=== PATIENT | male | born 1980 | race Caucasian/White ===

== ENCOUNTER 2016-12-10 13:43 | Emergency (ER) | payer OTHER ==
[2016-12-10 13:50] VITALS: PULSE 77; BMI 27.1
--- NOTE | 2016-12-10 14:12 | PDOC ---
History of Present Illness - General History Source: Patient Exam Limitations: No Limitations - History of Present Illness Initial Comments: 12/10/16 14:45 The patient is a 36 year old male, with no significant past medical history, who presents to the emergency department with generalized weakness and dizziness for the past 3 days. He reports that when he stands up he feels dizzy. He denies any loss of consciousness. He notes that he has been eating well. He denies a family history of diabetes. He reports any recent travel or sick contacts. The patient denies chest pain, shortness of breath and headache. Denies fever, chills, nausea, vomit, diarrhea and constipation. Denies dysuria, frequency, urgency and hematuria. Allergies: None Past surgical history: None reported Social history: No alcohol, tobacco or drug use reported <Fabricio Crawley - Last Filed: 12/10/16 15:23> <Radha Ty - Last Filed: 12/11/16 13:18> - General Chief Complaint: Syncope/Near Syncope Stated Complaint: WEAKNESS Time Seen by Provider: 12/10/16 14:10 Past History <Fabricio Crawley - Last Filed: 12/10/16 15:23> - Past Medical History Suicide Attempt (Hx): No Other medical history: DENIES - Immunization History Immunization Up to Date: Yes - Psycho/Social/Smoking Cessation Hx Anxiety: No Suicidal Ideation: No Smoking History: Never smoked Hx Alcohol Use: No Drug/Substance Use Hx: No Substance Use Type: None <Radha Ty - Last Filed: 12/11/16 13:18> - Past Medical History Allergies/Adverse Reactions: Allergies Allergy/AdvReac Type Severity Reaction Status Date / Time No Known Allergies Allergy Verified 12/10/16 13:50 Home Medications: Ambulatory Orders NK [No Known Home Medication] 01/17/16 Review of Systems - Review of Systems Able to Perform ROS?: Yes Comments:: 12/10/16 14:45 GENERAL/CONSTITUTIONAL: +Generalized weakness. No fever or chills. HEAD, EYES, EARS, NOSE AND THROAT: No change in vision. No ear pain or discharge. No sore throat. CARDIOVASCULAR: No chest pain or shortness of breath RESPIRATORY: No cough, wheezing, or hemoptysis. GASTROINTESTINAL: No nausea, vomiting, diarrhea or constipation. GENITOURINARY: No dysuria, frequency, or change in urination. MUSCULOSKELETAL: No joint or muscle swelling or pain. No neck or back pain. SKIN: No rash NEUROLOGIC: +Dizziness. No headache, loss of consciousness, or change in strength/sensation. ENDOCRINE: No increased thirst. No abnormal weight change HEMATOLOGIC/LYMPHATIC: No anemia, easy bleeding, or history of blood clots. ALLERGIC/IMMUNOLOGIC: No hives or skin allergy. <OlyajonoFabriciosajan Vogt - Last Filed: 12/10/16 15:23> *Physical Exam - Vital Signs Last Vital Signs Temp Pulse Resp BP Pulse Ox 98.7 F 77 20 133/90 97 12/10/16 13:47 12/10/16 13:47 12/10/16 13:47 12/10/16 13:47 12/10/16 13:47 - Physical Exam Comments: 12/10/16 14:47 GENERAL: Awake, alert, and fully oriented, in no acute distress HEAD: No signs of trauma, normocephalic, atraumatic EYES: PERRLA, EOMI, sclera anicteric, conjunctiva clear ENT: Auricles normal inspection, hearing grossly normal, nares patent, oropharynx clear without exudates. +Dry mucosa NECK: Normal ROM, supple, no lymphadenopathy, JVD, or masses LUNGS: No distress, speaks full sentences, clear to auscultation bilaterally HEART: Regular rate and rhythm, normal S1 and S2, no murmurs, rubs or gallops, peripheral pulses normal and equal bilaterally. ABDOMEN: Soft, nontender, normoactive bowel sounds. No guarding, no rebound. No masses EXTREMITIES: Normal inspection, Normal range of motion, no edema. No clubbing or cyanosis. NEUROLOGICAL: Cranial nerves II through XII grossly intact. Normal speech, normal gait, no focal sensorimotor deficits SKIN: Warm, Dry, normal turgor, no rashes or lesions noted. <OlyajonoFabriciosajan Vogt - Last Filed: 12/10/16 15:23> - Vital Signs Last Vital Signs Temp Pulse Resp BP Pulse Ox 98.7 F 77 20 133/90 97 12/10/16 13:47 12/10/16 13:47 12/10/16 13:47 12/10/16 13:47 12/10/16 13:47 <Radha Ty - Last Filed: 12/11/16 13:18> ED Treatment Course - LABORATORY CBC & Chemistry Diagram: 12/10/16 15:00 12/10/16 15:00 <Fabricio Crawley - Last Filed: 12/10/16 15:23> - LABORATORY CBC & Chemistry Diagram: 12/10/16 15:00 12/10/16 15:00 <Radha Ty - Last Filed: 12/11/16 13:18> Medical Decision Making - Medical Decision Making Labs with no significant findings. Patient improved with IV fluids. Well- appearing, no significant findings on exam. Stable for DC home. <Radha Ty - Last Filed: 12/11/16 13:18> *DC/Admit/Observation/Transfer - Attestations Scribe Attestion: 12/10/16 14:47 Documentation prepared by Fabricio Crawley, acting as medical office asst for Radha Ty MD <Fabricio Crawley - Last Filed: 12/10/16 15:23> - Discharge Dispostion Admit: No <Radha Ty - Last Filed: 12/11/16 13:18> Diagnosis at time of Disposition: Dehydration - Discharge Dispostion Disposition: HOME Condition at time of disposition: Stable - Referrals Referrals: Shari Juárez [Primary Care Provider] - - Patient Instructions Printed Discharge Instructions: DI for Dehydration -- Adult
[2016-12-10] MEDS ORDERED: SODIUM CHLORIDE 1,000 ML IV STA ×2 (14:40→15:36)
[2016-12-10 15:06] LABS: BASOPHIL 0.8 % (0-2.0); EOSINOPHIL 0.5 % (0-4.5); MCH 31.3 pg (25.7-33.7); MEAN PLT VOLUME 7.7 fl (7.5-11.1); NEUTROPHILS 61.2 % (42.8-82.8); PLATELET COUNT 271 K/MM3 (134-434); RDW 12.9 % (11.9-15.9); WHITE BLOOD COUNT 5.4 K/mm3 (4.0-10.0)
[2016-12-10 15:17] LABS: URINE APPEARANCE CLEAR; URINE BILIRUBIN NEGATIVE (NEGATIVE); URINE BLOOD NEGATIVE (NEGATIVE); URINE COLOR YELLOW; URINE GLUCOSE (UA) NEGATIVE (NEGATIVE); URINE KETONE NEGATIVE (NEGATIVE); URINE LEUK ESTERASE NEGATIVE (NEGATIVE); URINE NITRITE NEGATIVE (NEGATIVE); URINE UROBILINOGEN NEGATIVE E.U./dl (0.2-1.0)
[2016-12-10 15:22] LABS: URINE PROTEIN 2+ (NEGATIVE)
[2016-12-10 15:23] LABS: URINE MUCUS RARE; URINE RBC 1 /hpf (0-3); URINE WBC 1 /hpf (3-5)
[2016-12-10 15:28] LABS: ALBUMIN 3.9 g/dl (3.4-5.0); ALK PHOS 55 U/L (45-117); ANION GAP 8 (8-16); BILIRUBIN,TOTAL 0.5 mg/dL (0.2-1.0); CALCIUM 8.6 mg/dL (8.5-10.1); CO2 24 mmol/L (21-32); CREATININE 1.3 mg/dL (0.7-1.3); GLUCOSE,RANDOM 81 mg/dL (74-106); SGPT/ALT 38 U/L (12-78); TOT PROT 7.7 g/dl (6.4-8.2)
[2016-12-10 15:30] LABS: SGOT/AST 46 U/L (15-37)
[2016-12-10 16:47] VITALS: BP 133/74; TEMP 98.6
--- NOTE | 2016-12-10 18:20 | EKG ---
Test Reason : Blood Pressure : / mmHG Vent. Rate : 073 BPM Atrial Rate : 073 BPM P-R Int : 152 ms QRS Dur : 082 ms QT Int : 374 ms P-R-T Axes : 051 003 023 degrees QTc Int : 412 ms NORMAL SINUS RHYTHM MINIMAL VOLTAGE CRITERIA FOR LVH, MAY BE NORMAL VARIANT NONSPECIFIC ST ABNORMALITY ABNORMAL ECG WHEN COMPARED WITH ECG OF 18-AUG-2016 09:37, NO SIGNIFICANT CHANGE WAS FOUND Confirmed by NIYAH MASSEY MD ([id number]) on 12/10/2016 6:20:15 PM Referred By: Evelyn Confirmed By:NIYAH MASSEY MD
== END 2016-12-10 16:46 | disposition home or self-care (01) ==
LOC: JER 13:43
PROC: 3E0337Z Introduction of Electrolytic and Water Balance Substance into Peripheral Vein, Percutaneous Approach (ICD-10-PCS; principal; 2016-12-10)
DX: E86.0 Dehydration (principal)
CPT/HCPCS: 36415; 80053; 81003; 81015; 85025; 93005; 93010; 99285-25

== ENCOUNTER 2017-04-11 11:50 | Emergency (ER) | payer OTHER ==
[2017-04-11 11:59] VITALS: TEMP 98; BMI 27.2
[2017-04-11] MEDS ORDERED: SODIUM CHLORIDE 1,000 ML IV STA (12:41)
[2017-04-11] MEDS ORDERED: KETOROLAC TROMETHAMINE 30 MG/1 ML VIAL IVPUSH STA (12:41)
[2017-04-11] MEDS ORDERED: PANTOPRAZOLE SODIUM 40 MG in SODIUM CHLORIDE 100 ML IVPB ONE (12:41)
--- NOTE | 2017-04-11 13:03 | PDOC ---
History of Present Illness - General Chief Complaint: Pain Stated Complaint: ABD PAIN Time Seen by Provider: 04/11/17 12:11 History Source: Patient Exam Limitations: No Limitations - History of Present Illness Travel History: No Initial Comments: 04/11/17 12:57 37-year-old male presents to the ED with complaints of intermittent diarrhea for the past 2 days associated with epigastric cramping without fever, chills, nausea, weakness, dizziness, rectal bleeding, or back pain. Patient states symptoms are worsened after eating and denies history of diverticulitis, recent travel, recent illness. Pt states diarrhea has decreased over the past 24 hours but since still continues, he decided to seek medical care. Timing/Duration: reports: intermittent Quality: reports: moderate, cramping Abdominal Pain Onset Location: reports: epigastric Pain Radiation: reports: no radiation Aggravating Factors: improves with: Eating Alleviating Factors: improves with: None Past History - Travel Traveled outside of the country in the last 30 days: No Close contact w/someone who was outside of country & ill: No - Past Medical History Allergies/Adverse Reactions: Allergies Allergy/AdvReac Type Severity Reaction Status Date / Time No Known Allergies Allergy Verified 04/11/17 11:59 Home Medications: Ambulatory Orders NK [No Known Home Medication] 01/17/16 Suicide Attempt (Hx): No - Immunization History Immunization Up to Date: Yes - Psycho/Social/Smoking Cessation Hx Anxiety: No Suicidal Ideation: No Smoking History: Never smoked Information on smoking cessation initiated: No Hx Alcohol Use: No Drug/Substance Use Hx: No Substance Use Type: None Patient Lives Alone: No Lives with/in: spouse/SO Abd/GI Specific PMHX - Complaint Specific PMHX Colitis: No Diverticulitis: No GERD: No GI Ulcer Disease: No Review of Systems - Review of Systems Able to Perform ROS?: Yes Constitutional: No: Symptoms Reported HEENTM: No: Symptoms Reported Respiratory: Yes: Cough, SOB with Exertion Cardiac (ROS): No: Symptoms Reported, Chest Pain, Chest Tightness ABD/GI: No: Symptoms Reported Musculoskeletal: No: Symptoms Reported Integumentary: No: Symptoms Reported Neurological: No: Symptoms reported Hematologic/Lymphatic: No: Symptoms Reported *Physical Exam - Vital Signs Last Vital Signs Temp Pulse Resp BP Pulse Ox 98 F 88 18 155/85 98 04/11/17 11:55 04/11/17 11:55 04/11/17 11:55 04/11/17 11:55 04/11/17 11:55 - Physical Exam General Appearance: Yes: Nourished, Appropriately Dressed. No: Apparent Distress HEENT: negative: Pale Conjunctivae Neck: positive: Supple Respiratory/Chest: positive: Lungs Clear, Normal Breath Sounds. negative: Respiratory Distress, Accessory Muscle Use Cardiovascular: positive: Regular Rhythm, Regular Rate. negative: Murmur Gastrointestinal/Abdominal: positive: Soft, Tenderness (epigastric right upper quadrant. Negative Rowena) Musculoskeletal: negative: CVA Tenderness Integumentary: positive: Normal Color, Warm, Moist Neurologic: positive: Motor Strength 5/5 (ambulatory) ED Treatment Course - LABORATORY CBC & Chemistry Diagram: 04/11/17 13:00 04/11/17 13:00 Medical Decision Making - Medical Decision Making 04/11/17 13:08 Patient complains of intermittent diarrhea for the past 2 days aggravated with eating. Patient has no other complaints at this time except for mild abdominal cramping to the epigastric region. Patient on exam and tenderness to the epigastric and right upper quadrant area. Patient be ordered for labs including a lipase, ordered for Protonix IV fluids and Toradol. Patient also started drinking contrast if the need for CT will be required. 04/11/17 15:00 Laboratory Tests 04/11/17 12:41 Urine Protein 2+ H Urine Nitrite Negative Urine Bilirubin Negative Ur Leukocyte Esterase Negative Urine WBC <1 04/11/17 15:01 Laboratory Tests 04/11/17 04/11/17 13:00 13:00 WBC 6.2 Hgb 14.9 Hct 43.7 Neutrophils % 63.8 Sodium 141 Potassium 4.6 Chloride 107 Carbon Dioxide 28 Anion Gap 6 L BUN 15 Creatinine 1.2 Random Glucose 91 Calcium 9.3 Magnesium 2.1 Total Bilirubin 0.4 AST 38 H ALT 38 Lipase 157 Patient states feeling better after receiving the above medication. Patient be discharged home with recommendations to take [id number] Pepcid and to eat stool binding foods such as starches and bananas *DC/Admit/Observation/Transfer Diagnosis at time of Disposition: Epigastric pain Diarrhea Qualifiers: Diarrhea type: unspecified type Qualified Code(s): R19.7 - Diarrhea, unspecified - Discharge Dispostion Disposition: HOME Condition at time of disposition: Improved - Referrals Referrals: Shari Juárez [Primary Care Provider] - - Patient Instructions Printed Discharge Instructions: DI for Diarrhea and Traveler's Diarrhea -- Adult, DI for Epigastric Pain Additional Instructions: take [id number] Pepcid and to eat stool binding foods such as starches and bananas.
[2017-04-11] MEDS ORDERED: KETOROLAC TROMETHAMINE 30 MG/1 ML VIAL ONE (13:12)
[2017-04-11] MEDS ORDERED: PANTOPRAZOLE SODIUM 100 ML IVPB ONE (13:12)
[2017-04-11 13:27] LABS: BASOPHIL 0.6 % (0-2.0); EOSINOPHIL 0.8 % (0-4.5); MCH 31.6 pg (25.7-33.7); MEAN PLT VOLUME 8.2 fl (7.5-11.1); NEUTROPHILS 63.8 % (42.8-82.8); PLATELET COUNT 235 K/MM3 (134-434); RDW 13.2 % (11.9-15.9); WHITE BLOOD COUNT 6.2 K/mm3 (4.0-10.0)
--- NOTE | 2017-04-11 13:31 | PDOC ---
*Physical Exam - Vital Signs Last Vital Signs Temp Pulse Resp BP Pulse Ox 98 F 88 18 155/85 98 04/11/17 11:55 04/11/17 11:55 04/11/17 11:55 04/11/17 11:55 04/11/17 11:55 ED Treatment Course - LABORATORY CBC & Chemistry Diagram: 04/11/17 13:00 04/11/17 13:00 - Medications Given in the ED: ED Medications Discontinued Medications Generic Name Dose Route Start Last Admin Trade Name Doris PRN Reason Stop Dose Admin Pantoprazole Sodium 40 mg/ 100 mls @ 200 mls/hr 04/11/17 12:41 04/11/17 13:19 Sodium Chloride IVPB 04/11/17 13:10 200 mls/hr ONCE ONE Administration Ketorolac Tromethamine 30 mg 04/11/17 12:41 04/11/17 13:19 Toradol Injection - IVPUSH 04/11/17 12:42 30 mg ONCE STA Administration Medical Decision Making - Medical Decision Making 04/11/17 13:30 Patient seen and evaluated with the nurse practitioner. I agree with the overall evaluation, assessment, and management with the following summary of visit: 37-year-old male presents with abdominal discomfort and diarrhea. Agree with exam, agree with workup including labs, IV fluids, antacids. Reassess and dispo
[2017-04-11 13:35] LABS: ALBUMIN 3.8 g/dl (3.4-5.0); ALK PHOS 63 U/L (45-117); ANION GAP 6 (8-16); BILIRUBIN,TOTAL 0.4 mg/dL (0.2-1.0); CALCIUM 9.3 mg/dL (8.5-10.1); CO2 28 mmol/L (21-32); CREATININE 1.2 mg/dL (0.7-1.3); GLUCOSE,RANDOM 91 mg/dL (74-106); SGPT/ALT 38 U/L (12-78); TOT PROT 7.6 g/dl (6.4-8.2)
[2017-04-11 13:40] LABS: MAGNESIUM 2.1 mg/dL (1.8-2.4)
[2017-04-11 13:41] LABS: SGOT/AST 38 U/L (15-37)
[2017-04-11 13:46] LABS: URINE APPEARANCE CLEAR; URINE BILIRUBIN NEGATIVE (NEGATIVE); URINE BLOOD NEGATIVE (NEGATIVE); URINE COLOR YELLOW; URINE GLUCOSE (UA) NEGATIVE (NEGATIVE); URINE KETONE NEGATIVE (NEGATIVE); URINE LEUK ESTERASE NEGATIVE (NEGATIVE); URINE NITRITE NEGATIVE (NEGATIVE)
[2017-04-11 14:14] LABS: URINE PROTEIN 2+ (NEGATIVE)
[2017-04-11 14:22] LABS: URINE MUCUS RARE; URINE RBC <1 /hpf (0-3); URINE WBC <1 /hpf (3-5)
[2017-04-11 15:20] VITALS: BP 145/78; PULSE 72
== END 2017-04-11 15:18 | disposition home or self-care (01) ==
LOC: JER 11:50
PROC: 3E033GC Introduction of Other Therapeutic Substance into Peripheral Vein, Percutaneous Approach (ICD-10-PCS; principal; 2017-04-11)
PROC: 3E0333Z Introduction of Anti-inflammatory into Peripheral Vein, Percutaneous Approach (ICD-10-PCS; 2017-04-11)
DX: R10.11 Right upper quadrant pain (principal); R19.7 Diarrhea, unspecified
CPT/HCPCS: 36415; 80053; 81003; 81015; 83690; 83735; 85025; 99283-25

== ENCOUNTER 2017-11-07 16:46 | Emergency (ER) | payer OTHER ==
[2017-11-07 16:52] VITALS: BP 136/92; PULSE 74; TEMP 97.9; BMI 27.2
[2017-11-07] MEDS ORDERED: KETOROLAC TROMETHAMINE 30 MG/1 ML VIAL IM ONE (16:53)
--- NOTE | 2017-11-07 16:53 | PDOC ---
Rapid Medical Evaluation Chief Complaint: Headache Time Seen by Provider: 11/07/17 16:49 Medical Evaluation: Allergies Allergy/AdvReac Type Severity Reaction Status Date / Time No Known Allergies Allergy Verified 11/07/17 16:49 11/07/17 16:50 I have performed a brief in-person evaluation of this patient. The patient presents with a chief complaint of: frontal headache with diplopia x2 days- completely relieved with Fiorcet Pertinent physical exam findings: VSS CN2-12 grossly intact I have ordered the following: Toradol The patient will proceed to the ED for further evaluation. Discharge Disposition - Diagnosis Headache - Referrals - Patient Instructions - Post Discharge Activity
[2017-11-07] MEDS ORDERED: KETOROLAC TROMETHAMINE 30 MG/1 ML VIAL ONE (18:22)
--- NOTE | 2017-11-07 18:33 | PDOC ---
History of Present Illness - General Chief Complaint: Headache Stated Complaint: HEADACHE Time Seen by Provider: 11/07/17 16:49 History Source: Patient Exam Limitations: No Limitations - History of Present Illness Initial Comments: 11/07/17 18:40 Pt with episodic headache over the past 3 years relieved with fioricet which was prescribed by pts pcp. Pt requesting fioricet refill. Pt denies worsening s/ s. Pt states has not had any imaging for the above. Pt does state intermittent blurry vision with headaches since onset. Pt denies nausea, weakness, fever, or neck pain. Timing/Duration: reports: 4-6 hours Severity: Yes: mild Associated Symptoms: reports: other Past History - Travel Traveled outside of the country in the last 30 days: No - Past Medical History Allergies/Adverse Reactions: Allergies Allergy/AdvReac Type Severity Reaction Status Date / Time No Known Allergies Allergy Verified 11/07/17 16:49 Home Medications: Ambulatory Orders NK [No Known Home Medication] 01/17/16 - Immunization History Immunization Up to Date: Yes - Suicide/Smoking/Psychosocial Hx Smoking History: Never smoked Hx Alcohol Use: No Drug/Substance Use Hx: No Substance Use Type: None Patient Lives Alone: No Lives with/in: spouse/SO Review of Systems - Review of Systems Able to Perform ROS?: Yes Constitutional: No: Symptoms Reported HEENTM: Yes: Blurred Vision (intermittently) ABD/GI: No: Symptoms Reported Musculoskeletal: No: Symptoms Reported Integumentary: No: Symptoms Reported Neurological: Yes: Headache *Physical Exam - Vital Signs Last Vital Signs Temp Pulse Resp BP Pulse Ox 97.9 F 74 20 136/92 97 11/07/17 16:49 11/07/17 16:49 11/07/17 16:49 11/07/17 16:49 11/07/17 16:49 - Physical Exam General Appearance: Yes: Nourished, Appropriately Dressed. No: Apparent Distress HEENT: positive: EOMI, VIJAY Cardiovascular: positive: Regular Rhythm, Regular Rate. negative: Murmur Extremity: positive: Normal Capillary Refill Integumentary: positive: Normal Color, Warm, Moist Neurologic: positive: Normal Mood/Affect, Motor Strength 5/5 (ambulatory) ED Treatment Course - RADIOLOGY Radiology Studies Ordered: Category Date Time Status HEAD CT WITHOUT CONTRAST [CT] Stat CT Scan 11/07/17 18:26 Ordered Medical Decision Making - Medical Decision Making 11/07/17 18:34 Pt with episodic headache now constant since yesterday. Pt on exam with no acute findings. Pt ordered for head ct and toradol. 11/07/17 19:[address] negative. Patient to be discharged home with refill to Fioricet. *DC/Admit/Observation/Transfer Diagnosis at time of Disposition: Headache - Discharge Dispostion Disposition: HOME Condition at time of disposition: Improved - Referrals Referrals: Shari Juárez [Primary Care Provider] - - Patient Instructions Printed Discharge Instructions: DI for Migraine Additional Instructions: Drink plenty of fluids and avoid triggers. Take Fioricet for pain. - Post Discharge Activity
== END 2017-11-07 19:13 | disposition home or self-care (01) ==
LOC: JERFT 16:46
PROC: 3E0233Z Introduction of Anti-inflammatory into Muscle, Percutaneous Approach (ICD-10-PCS; principal; 2017-11-07)
DX: R51 Headache (principal)
CPT/HCPCS: 70450-TC; 96372; 99281-25

== ENCOUNTER 2018-01-26 10:30 | Emergency (ER) | payer OTHER ==
[2018-01-26 10:40] VITALS: BP 104/80; PULSE 87; TEMP 98.9; BMI 26.9
--- NOTE | 2018-01-26 12:14 | PDOC ---
History of Present Illness - General Chief Complaint: Cold Symptoms Stated Complaint: HEADACHES Time Seen by Provider: 01/26/18 10:49 - History of Present Illness Initial Comments: 37-year-old male presents for evaluation of headache with associated cough. Going on the last 2 days. He has no fevers chills or night sweats nausea vomiting. He's had headaches like this in the past area he does have a history of migraines and this headache is typical of prior headaches. 01/26/18 12:06 Past History - Past Medical History Allergies/Adverse Reactions: Allergies Allergy/AdvReac Type Severity Reaction Status Date / Time No Known Allergies Allergy Verified 01/26/18 10:37 Home Medications: Ambulatory Orders Acetaminophen/Caffeine/Butalb [Fioricet -] 1 tab PO TID PRN #15 tablet MDD 3 Dextromethorphan HBr [Robitussin] 15 mg PO HS #20 ml 01/26/18 Dextromethorphan HBr [Robitussin] 15 mg PO HS #20 ml 01/26/18 CVA: No COPD: No DVT: No - Immunization History Immunization Up to Date: Yes - Suicide/Smoking/Psychosocial Hx Smoking History: Never smoked Information on smoking cessation initiated: No Hx Alcohol Use: No Drug/Substance Use Hx: No Substance Use Type: None Review of Systems - Review of Systems Comments:: 01/26/18 12:07 GENERAL/CONSTITUTIONAL: [No fever or chills. No weakness. No weight change.] HEAD, EYES, EARS, NOSE AND THROAT: [No change in vision. No ear pain or discharge. No sore throat.] CARDIOVASCULAR: [No chest pain or shortness of breath.] RESPIRATORY: [+ cough, NO wheezing, or hemoptysis.] GASTROINTESTINAL: [No nausea, vomiting, diarrhea or constipation. No rectal bleeding.] GENITOURINARY: [No dysuria, frequency, or change in urination.] MUSCULOSKELETAL: [No joint or muscle swelling or pain. No neck or back pain.] SKIN AND BREASTS: [No rash or easy bruising.] NEUROLOGIC: [+ headache, NO vertigo, loss of consciousness, or loss of sensation.] PSYCHIATRIC: [No depression or anxiety.] ENDOCRINE: [No increased thirst. No abnormal weight change.] HEMATOLOGIC/LYMPHATIC: [No anemia, easy bleeding, or history of blood clots.] ALLERGIC/IMMUNOLOGIC: [No hives or skin allergy. No latex allergy.] *Physical Exam - Vital Signs Last Vital Signs Temp Pulse Resp BP Pulse Ox 98.9 F 87 17 104/80 96 01/26/18 10:37 01/26/18 10:37 01/26/18 10:37 01/26/18 10:37 01/26/18 10:37 - Physical Exam Comments: 01/26/18 12:08 GENERAL: [The patient is awake, alert, and fully oriented, in no acute distress. ] HEAD: [Normal with no signs of trauma.] EYES: [Pupils equal, round and reactive to light, extraocular movements intact, sclera anicteric, conjunctiva clear.] ENT: [Ears normal, nares patent, oropharynx clear without exudates. Moist mucous membranes.] NECK: [Normal range of motion, supple without lymphadenopathy, JVD, or masses.] LUNGS: [Breath sounds equal, clear to auscultation bilaterally. No wheezes, and no crackles.] HEART: [Regular rate and rhythm, normal S1 and S2 without murmur, rub or gallop. ] ABDOMEN: [Soft, nontender, normoactive bowel sounds. No guarding, no rebound. No masses.] EXTREMITIES: [Normal range of motion, no edema. No clubbing or cyanosis. No cords, erythema, or tenderness.] NEUROLOGICAL: [Cranial nerves II through XII grossly intact. Normal speech, normal gait.] PSYCH: [Normal mood, normal affect.] SKIN: [Warm, Dry, normal turgor, no rashes or lesions noted.] Medical Decision Making - Medical Decision Making This may be a viral bronchitis causing a headache with his cough or exacerbation of his pre-existing migraines. He has Fioricet at home which she takes. I will give him Robitussin for the cough and close follow-up with his PCP 01/26/18 12:08 *DC/Admit/Observation/Transfer Diagnosis at time of Disposition: Headache, Bronchitis, Cough - Discharge Dispostion Disposition: HOME Condition at time of disposition: Stable Decision to Admit order: No - Referrals Referrals: Shari Juárez [Primary Care Provider] - - Patient Instructions Printed Discharge Instructions: DI for Viral Upper Respiratory Infection -- Adult Additional Instructions: May continue headache medication as prescribed above also phoned in Artemioitussin for cough follow-up with her primary care provider next day or to return to the emergency room if symptoms worsen or go unresolved prior follow-up - Post Discharge Activity
== END 2018-01-26 12:23 | disposition home or self-care (01) ==
LOC: JERFT 10:30
DX: J40 Bronchitis, not specified as acute or chronic (principal); R05 Cough; R51 Headache
CPT/HCPCS: 99281-25

== ENCOUNTER 2018-03-02 09:31 | Emergency (ER) | payer OTHER ==
[2018-03-02 09:47] VITALS: BP 127/86; PULSE 81; TEMP 97.9; BMI 27.4
[2018-03-02] MEDS ORDERED: KETOROLAC TROMETHAMINE 60 MG/2 ML VIAL IM ONE (10:58)
[2018-03-02] MEDS ORDERED: CYCLOBENZAPRINE HCL 10 MG TABLET (FP) PO ONE (10:58)
[2018-03-02] MEDS ORDERED: KETOROLAC TROMETHAMINE 60 MG/2 ML VIAL ONE (11:00)
--- NOTE | 2018-03-02 11:18 | PDOC ---
History of Present Illness - General Chief Complaint: Pain, Acute Stated Complaint: LEG PAIN Time Seen by Provider: 03/02/18 09:53 History Source: Patient - History of Present Illness Occurred: reports: yesterday Severity: Yes: moderate Lower Extremity Pain Location: left: other (thigh and R thumb) Method of Injury: Yes: sports injury Past History - Past Medical History Allergies/Adverse Reactions: Allergies Allergy/AdvReac Type Severity Reaction Status Date / Time No Known Allergies Allergy Verified 03/02/18 09:42 Home Medications: Ambulatory Orders Cyclobenzaprine HCl [Flexeril -] 10 mg PO TID #9 tablet 03/02/18 Ibuprofen [Motrin -] 2 tab PO Q6H #30 tablet 03/02/18 CVA: No COPD: No DVT: No - Immunization History Immunization Up to Date: Yes - Suicide/Smoking/Psychosocial Hx Smoking History: Never smoked Information on smoking cessation initiated: No Hx Alcohol Use: No Drug/Substance Use Hx: No Substance Use Type: None Review of Systems - Review of Systems Musculoskeletal: Yes: Joint Pain, Joint Swelling *Physical Exam - Vital Signs Last Vital Signs Temp Pulse Resp BP Pulse Ox 97.9 F 81 16 127/86 96 03/02/18 09:43 03/02/18 09:43 03/02/18 09:43 03/02/18 09:43 03/02/18 09:43 - Physical Exam General Appearance: Yes: Appropriately Dressed, Moderate Distress HEENT: positive: Normal Voice Neck: positive: Supple Respiratory/Chest: negative: Respiratory Distress Musculoskeletal: positive: Other (ttp to posterior L thigh, no swelling, distal phalanx of R thumb w/ swelling, erythema and ttp) Integumentary: positive: Dry, Warm Neurologic: positive: Fully Oriented, Alert, Normal Mood/Affect ED Treatment Course - RADIOLOGY Radiology Studies Ordered: Category Date Time Status FEMUR-LEFT [RAD] Stat Radiology 03/02/18 10:57 Ordered FINGER(S) RIGHT [RAD] Stat Radiology 03/02/18 10:59 Ordered - Medications Given in the ED: ED Medications Discontinued Medications Generic Name Dose Route Start Last Admin Trade Name Freq PRN Reason Stop Dose Admin Ketorolac Tromethamine 60 mg 03/02/18 10:58 03/02/18 11:02 Toradol Injection - IM 03/02/18 10:59 60 mg ONCE ONE Administration Medical Decision Making - Medical Decision Making 03/02/18 11:13 37-year-old male, no significant history, presents with multiple injuries status post basketball yesterday. Patient complaining of pain to posterior aspect of left thigh which started after landing jumpimg in air and landing hard on LLE. Suspects might be his hamstring. Pain sharp and constant and worse with weight bearing. Has not taken anything for pain but wearing an john wrap to extremity. Also complaining of R thumb pain and swelling after a ball bounced off finger. See exam LLE pain s/p sports injury M/l strain -XR 2/2 degree of pain -pain meds in ED/reassess R thumb injury R/o fx -xray 03/02/18 11:44 Left femur negative for fracture. Right thumb film with possible minor non- displaced fracture to base of distal phalanx. Finger splint paced and hand follow-up given. Patient better with meds in ED, will discharge with pain control *DC/Admit/Observation/Transfer Diagnosis at time of Disposition: Muscle strain of thigh Qualifiers: Encounter type: initial encounter Laterality: left Qualified Code(s): S76.912A - Strain of unspecified muscles, fascia and tendons at thigh level, left thigh, initial encounter Thumb sprain Qualifiers: Sprain of finger site: other site Laterality: right - Discharge Dispostion Disposition: HOME Condition at time of disposition: Improved - Prescriptions Prescriptions: Cyclobenzaprine HCl [Flexeril -] 10 mg PO TID #9 tablet Ibuprofen [Motrin -] 2 tab PO Q6H #30 tablet - Referrals Referrals: Shari Juárez [Primary Care Provider] - Bubba Rossi MD [Staff Physician] - - Patient Instructions Printed Discharge Instructions: DI for Finger Sprain, DI for Hamstring Strain Additional Instructions: X-ray of your left thigh did not show a fracture. There is a possible very minor fracture in your thumb. Treatment is with a splint for comfort and Motrin or Tylenol for pain as needed. You can follow up for reevaluation in 2 weeks with an orthopedic doctor. Take pain medication as directed - Post Discharge Activity Forms/Work/School Notes: Back to Work
== END 2018-03-02 12:06 | disposition home or self-care (01) ==
LOC: JERFT 09:31
PROC: 2W3JX1Z Immobilization of Right Finger using Splint (ICD-10-PCS; principal; 2018-03-02)
PROC: 3E0233Z Introduction of Anti-inflammatory into Muscle, Percutaneous Approach (ICD-10-PCS; 2018-03-02)
DX: S76.812A Strain of other specified muscles, fascia and tendons at thigh level, left thigh, initial encounter (principal); S63.681A Other sprain of right thumb, initial encounter; X50.9XXA Other and unspecified overexertion or strenuous movements or postures, initial encounter; Y93.67 Activity, basketball; Y92.310 Basketball court as the place of occurrence of the external cause; Y99.8 Other external cause status
CPT/HCPCS: 29130; 73140-TC-RT-FY; 73552-TC-LT-FY; 96372; 99281-25

== ENCOUNTER 2018-06-28 17:04 | Emergency (ER) | payer OTHER ==
[2018-06-28 17:21] VITALS: BP 129/87; PULSE 80; TEMP 98.6; BMI 27.1
--- NOTE | 2018-06-28 17:21 | PDOC ---
Rapid Medical Evaluation Time Seen by Provider: 06/28/18 17:18 Medical Evaluation: Allergies Allergy/AdvReac Type Severity Reaction Status Date / Time No Known Allergies Allergy Verified 06/28/18 17:13 06/28/18 17:19 The patient complaints of: 1st toe pain after rotor fell on toe, no diabetes On brief exam: noted mild edema and LROM to left 1st toe The patient was ordered for: xray ordered The patient will proceed to the ED Discharge Disposition - Diagnosis Toe injury - Referrals - Patient Instructions - Post Discharge Activity
[2018-06-28] MEDS ORDERED: IBUPROFEN 400 MG TABLET (FP) PO ONE ×2 (18:59)
--- NOTE | 2018-06-28 19:02 | PDOC ---
History of Present Illness - General Chief Complaint: Injury Stated Complaint: LT FOOT PAIN Time Seen by Provider: 06/28/18 17:18 History Source: Patient Exam Limitations: No Limitations - History of Present Illness Initial Comments: 06/28/18 18:57 HISTORY OF PRESENT ILLNESS: This is a 38-year-old male without past medical history who presents emergency departments with left great toe pain status post direct trauma. Patient was carrying break rotors when the weight shifted causing him to adjust the way he was carrying them when one of the rotors fell out of the box striking him on the left great toe. No recent travel or sick contacts. PAST MEDICAL HISTORY: Denies past medical history SURGICAL HISTORY: Denies ALLERGIES: No known drug allergies REVIEW OF SYSTEMS General/Constitutional: Denies fever or chills. Denies weakness, weight change. HEENT: Denies change in vision. Denies ear pain or discharge. Denies sore throat. Cardiovascular: Denies chest pain or shortness of breath. Respiratory: Denies cough, wheezing, or hemoptysis. Gastrointestinal: Denies nausea, vomiting, diarrhea or constipation. Denies rectal bleeding. Genitourinary: Denies dysuria, frequency, or change in urination. Musculoskeletal: Left great toe pain. Skin and breasts: Denies rash or easy bruising. Neurologic: Denies headache, vertigo, loss of consciousness, or loss of sensation. Psychiatric: Denies depression or anxiety. Endocrine: Denies increased thirst. Denies abnormal weight change. Hematologic/Lymphatic: Denies anemia, easy bleeding, or history of blood clots. Allergic/Immunologic: Denies hives or skin allergy. Denies latex allergy. PHYSICAL EXAM General Appearance: Well-appearing, appropriately dressed. No apparent distress , no intoxication. HEENT: EOMI, PERRLA, normal ENT inspection, normal voice, TMs normal, pharynx normal. No conjunctival pallor. No photophobia, scleral icterus. Neck: Supple. Trachea midline. No tenderness, rigidity, carotid bruit, stridor , lymphadenopathy, or thyromegaly. Respiratory/Chest: Lungs CTAB. No shortness of breath, chest tenderness, respiratory distress, accessory muscle use. No crackles, rales, rhonchi, stridor , wheezing, dullness Cardiovascular: RRR. S1, S2. No JVD, murmur, bradycardia, tachycardia. Vascular Pulses: Dorsalis-Pedis (R): 2+, Dorsalis-Pedis (L): 2+ Gastrointestinal/Abdominal: Normal bowel sounds. Abdomen soft, non-distended. No tenderness or rebound tenderness. No organomegaly, pulsatile mass, guarding, hernia, hepatomegaly, splenomegaly. Lymphatic: No adenopathy, tenderness. Musculoskeletal/Extremities: Normal inspection. FROM of all extremities, normal capillary refill. Pelvis Stable. No CVA tenderness. Tenderness to the distal phalanx of the left great toe. Capillary refill less than 2 seconds. No subungual hematoma present. Able to flex and extend toe against resistance. Integumentary: Appropriate color, dry, warm. No cyanosis, erythema, jaundice or rash Neurologic: radioactivity technician II-XII intact. Fully oriented, alert. Appropriate mood/affect. Motor strength 5/5. No appreciable EOM palsy, facial droop or sensory deficit. Past History - Past Medical History Allergies/Adverse Reactions: Allergies Allergy/AdvReac Type Severity Reaction Status Date / Time No Known Allergies Allergy Verified 06/28/18 17:13 Home Medications: Ambulatory Orders NK [No Known Home Medication] 06/28/18 CVA: No COPD: No DVT: No HTN: Yes - Immunization History Immunization Up to Date: Yes - Suicide/Smoking/Psychosocial Hx Smoking History: Never smoked Hx Alcohol Use: No Drug/Substance Use Hx: No Substance Use Type: None *Physical Exam - Vital Signs Last Vital Signs Temp Pulse Resp BP Pulse Ox 98.6 F 80 18 129/87 97 06/28/18 17:18 06/28/18 17:18 06/28/18 17:18 06/28/18 17:18 06/28/18 17:18 Medical Decision Making - Medical Decision Making 06/28/18 18:59 A/P: 38-year-old male with left great toe pain status post direct trauma Tender to palpation of the distal phalanx of the left great toe No subungual hematoma present Capillary refill less than 2 seconds Full sensation noted to the distal phalanx of the left great toe X-rays as read by me: No acute fractures present Motrin 800 mg orally now Discharge home *DC/Admit/Observation/Transfer Diagnosis at time of Disposition: Contusion of great toe of left foot Qualifiers: Encounter type: initial encounter Damage to nail status: without damage Qualified Code(s): S90.112A - Contusion of left great toe without damage to nail , initial encounter - Discharge Dispostion Disposition: HOME Condition at time of disposition: Stable Decision to Admit order: No - Referrals Referrals: Shari Juárez [Primary Care Provider] - - Patient Instructions Additional Instructions: Take Tylenol or Motrin as needed for pain. Follow manufacture's instructions for appropriate dosage. You toes going to hurt for the next 7-10 days. Apply ice to help control pain. Return to emergency department for any concerns. - Post Discharge Activity
== END 2018-06-28 19:04 | disposition home or self-care (01) ==
LOC: JERFT 17:04
DX: S90.112A Contusion of left great toe without damage to nail, initial encounter (principal); W20.8XXA Other cause of strike by thrown, projected or falling object, initial encounter; Y93.89 Activity, other specified; Y92.69 Other specified industrial and construction area as the place of occurrence of the external cause; Y99.0 Civilian activity done for income or pay; I10 Essential (primary) hypertension
CPT/HCPCS: 73660-TC-LT-FY; 99281-25

== ENCOUNTER 2018-09-04 18:29 | Emergency (ER) | payer OTHER ==
[2018-09-04 18:44] VITALS: BP 146/105; PULSE 80; TEMP 98.2; BMI 27.6
--- NOTE | 2018-09-04 18:45 | PDOC ---
Rapid Medical Evaluation Chief Complaint: Sore Throat Medical Evaluation: Allergies Allergy/AdvReac Type Severity Reaction Status Date / Time No Known Allergies Allergy Verified 09/04/18 18:41 12 18:42 I have performed a brief in-person evaluation of this patient. The patient presents with a chief complaint of: sorethroat , no fevers, no coughs. Pertinent physical exam findings: throaot mild red/ no exudates I have ordered the following: rapid strep The patient will proceed to the ED for further evaluation. 09/04/18 18:45 Discharge Disposition - Diagnosis Sore throat - Referrals Referrals: Shari Juárez [Primary Care Provider] - - Patient Instructions - Post Discharge Activity
--- NOTE | 2018-09-04 19:25 | PDOC ---
History of Present Illness - General Chief Complaint: Sore Throat Stated Complaint: Sore Throat Time Seen by Provider: 09/04/18 19:10 - History of Present Illness Initial Comments: 09/04/18 19:24 28-year-old male with past medical history significant for hypertension presents for evaluation of sore throat 4 days after recent travel without systemic symptoms Past History - Past Medical History Allergies/Adverse Reactions: Allergies Allergy/AdvReac Type Severity Reaction Status Date / Time No Known Allergies Allergy Verified 09/04/18 18:41 Home Medications: Ambulatory Orders Unobtainable 09/04/18 CVA: No COPD: No DVT: No HTN: Yes - Immunization History Immunization Up to Date: Yes - Suicide/Smoking/Psychosocial Hx Smoking History: Never smoked Have you smoked in the past 12 months: No Hx Alcohol Use: No Drug/Substance Use Hx: No Substance Use Type: None Review of Systems - Review of Systems Constitutional: No: Fever HEENTM: Yes: Throat Pain *Physical Exam - Vital Signs Last Vital Signs Temp Pulse Resp BP Pulse Ox 98.2 F 80 18 146/105 H 95 09/04/18 18:41 18 18:41 09/04/18 18:41 09/04/18 18:41 09/04/18 18:41 - Physical Exam Comments: 09/04/18 19:25 HEAD: NC/AT EYES: Conjuntiva clear Ears: Canals and TM's normal NOSE: No d/c THROAT: Moist mucous membrances, oral pharanx clear, uvula midline NECK: Supple without adenopathy CARDIAC: S1 S2 LUNGS: CTA Full and Equal breath sounds ABDOMEN: Soft NT ND MS: Full ROM in all joints without edema NEUROLOGIC: No gross sensory or motor deficits, NVID SKIN: Normal color and temperature no lesions or rashes Moderate Sedation - Procedure Monitoring Vital Signs: Procedure Monitoring Vital Signs Temperature 98.2 F 09/04/18 18:41 Pulse Rate 80 09/04/18 18:41 Respiratory Rate 18 09/04/18 18:41 Blood Pressure 146/105 H 09/04/18 18:41 O2 Sat by Pulse Oximetry (%) 95 09/04/18 18:41 *DC/Admit/Observation/Transfer Diagnosis at time of Disposition: Sore throat, Viral pharyngitis - Discharge Dispostion Disposition: HOME Condition at time of disposition: Stable Decision to Admit order: No - Referrals Referrals: Shari Juárez [Primary Care Provider] - - Patient Instructions Printed Discharge Instructions: Viral Pharyngitis, DI for Viral Pharyngitis Additional Instructions: Warm salt water gargles 5-6 times a day, Tylenol and Motrin for pain as directed follow up with her primary care physician in one to 2 days for further evaluation and treatment options and return to the emergency room should symptoms worsen or go unresolved. Your strep today was negative and U do not require antibiotics culture was sent. - Post Discharge Activity
== END 2018-09-04 20:23 | disposition home or self-care (01) ==
LOC: JERFT 18:29
DX: J02.9 Acute pharyngitis, unspecified (principal); B97.89 Other viral agents as the cause of diseases classified elsewhere; I10 Essential (primary) hypertension
CPT/HCPCS: 87070; 87880; 99281-25

== ENCOUNTER 2018-09-12 11:49 | Emergency (ER) | payer OTHER ==
[2018-09-12 12:03] VITALS: BP 130/97; PULSE 77; TEMP 97.9; BMI 27.4
--- NOTE | 2018-09-12 12:33 | PDOC ---
History of Present Illness - General Stated Complaint: SORE THROAT, BODYACHES Time Seen by Provider: 09/12/18 12:25 - History of Present Illness Initial Comments: 09/12/18 12:31 38-year-old male presents for evaluation of general malaise and sore throat times one day Past History - Past Medical History Allergies/Adverse Reactions: Allergies Allergy/AdvReac Type Severity Reaction Status Date / Time No Known Allergies Allergy Verified 09/12/18 12:03 Home Medications: Ambulatory Orders NK [No Known Home Medication] 09/12/18 CVA: No COPD: No DVT: No HTN: Yes - Immunization History Immunization Up to Date: Yes - Suicide/Smoking/Psychosocial Hx Smoking History: Unknown if ever smoked Have you smoked in the past 12 months: No Information on smoking cessation initiated: No Hx Alcohol Use: No Drug/Substance Use Hx: No Substance Use Type: None Review of Systems - Review of Systems Constitutional: Yes: Chills, Malaise, Night Sweats, Weakness. No: Fever HEENTM: Yes: Throat Pain Respiratory: No: Cough *Physical Exam - Vital Signs Last Vital Signs Temp Pulse Resp BP Pulse Ox 97.9 F 77 16 130/97 99 09/12/18 11:49 09/12/18 11:49 09/12/18 11:49 09/12/18 11:49 09/12/18 11:49 - Physical Exam Comments: 09/12/18 12:32 HEAD: NC/AT EYES: Conjuntiva clear Ears: Canals and TM's normal NOSE: No d/c THROAT: Moist mucous membrances, oral pharanx clear, uvula midline NECK: Supple without adenopathy CARDIAC: S1 S2 LUNGS: CTA Full and Equal breath sounds ABDOMEN: Soft NT ND MS: Full ROM in all joints without edema NEUROLOGIC: No gross sensory or motor deficits, NVID SKIN: Normal color and temperature no lesions or rashes Moderate Sedation - Procedure Monitoring Vital Signs: Procedure Monitoring Vital Signs Temperature 97.9 F 09/12/18 11:49 Pulse Rate 77 09/12/18 11:49 Respiratory Rate 16 09/12/18 11:49 Blood Pressure 130/97 09/12/18 11:49 O2 Sat by Pulse Oximetry (%) 99 09/12/18 11:49 *DC/Admit/Observation/Transfer Diagnosis at time of Disposition: Upper respiratory infection - Discharge Dispostion Disposition: HOME Condition at time of disposition: Stable Decision to Admit order: No - Referrals Referrals: Irena Castellanos MD [Staff Physician] - - Patient Instructions Printed Discharge Instructions: DI for Viral Upper Respiratory Infection -- Adult Additional Instructions: Flu swab today was negative. He may take Tylenol and Motrin as directed for any discomfort. Return to the emergency room should symptoms worsen or go unresolved and follow-up with your primary care physician in one to 2 days for further evaluation and treatment options. - Post Discharge Activity
== END 2018-09-12 13:13 | disposition home or self-care (01) ==
LOC: JER 11:49 → JERFT 11:49
DX: J06.9 Acute upper respiratory infection, unspecified (principal); B97.89 Other viral agents as the cause of diseases classified elsewhere
CPT/HCPCS: 87804; 99281-25

== ENCOUNTER 2018-10-22 20:02 | Emergency (ER) | payer OTHER | END 2018-10-22 22:57 | disposition home or self-care (01) | LOC: JERFT 20:02 ==

== ENCOUNTER 2018-11-14 21:30 | Emergency (ER) | payer OTHER ==
--- NOTE | 2018-11-14 21:33 | PDOC ---
Rapid Medical Evaluation Time Seen by Provider: 11/14/18 21:31 Medical Evaluation: Allergies Allergy/AdvReac Type Severity Reaction Status Date / Time No Known Allergies Allergy Verified 10/22/18 20:21 11/14/18 21:32 I have performed a brief in-person evaluation of this patient. The patient presents with a chief complaint of:R ankle injury after "twisting it " this am per pt. Denies fall. has been limping since Pertinent physical exam findings:Defer to FT provider I have ordered the following:xray The patient will proceed to the ED for further evaluation. Discharge Disposition - Diagnosis Right ankle injury Qualifiers: Encounter type: initial encounter Qualified Code(s): S99.911A - Unspecified injury of right ankle, initial encounter - Referrals - Patient Instructions - Post Discharge Activity
[2018-11-14 21:37] VITALS: BP 150/110; PULSE 91; TEMP 98.1; BMI 60.5
--- NOTE | 2018-11-14 22:13 | PDOC ---
History of Present Illness - General Chief Complaint: Pain Stated Complaint: ANCLE PAIN Time Seen by Provider: 11/14/18 21:31 - History of Present Illness Initial Comments: 11/14/18 22:10 38-year-old male with a past medical history significant for hypertension presents for evaluation of right ankle pain. He describes an inversion injury which occurred this morning while getting his daughter ready for school. Past History - Past Medical History Allergies/Adverse Reactions: Allergies Allergy/AdvReac Type Severity Reaction Status Date / Time No Known Allergies Allergy Verified 10/22/18 20:21 Home Medications: Ambulatory Orders Unobtainable 10/22/18 CVA: No COPD: No DVT: No HTN: Yes - Immunization History Immunization Up to Date: Yes - Suicide/Smoking/Psychosocial Hx Smoking History: Never smoked Have you smoked in the past 12 months: No Information on smoking cessation initiated: No Hx Alcohol Use: No Drug/Substance Use Hx: No Substance Use Type: None Review of Systems - Review of Systems Musculoskeletal: Yes: Joint Pain *Physical Exam - Vital Signs Last Vital Signs Temp Pulse Resp BP Pulse Ox 98.1 F 91 H 20 150/110 H 100 11/14/18 21:34 11/14/18 21:34 11/14/18 21:34 11/14/18 21:34 11/14/18 21:34 - Physical Exam Comments: 11/14/18 22:10 Right ankle skin color and temperature are normal. There is no swelling. There is full range of motion of the ankle knee and foot as well as the toes. There is no tenderness about the knee proximal fibula or along its distal coarse. No tenderness about the medial or lateral malleolus base of the fifth metatarsal or navicular. Mild tenderness over the ATFL. Mild tenderness over the peroneal tendon. Neurovascularly intact, no instability no gross sensorimotor deficits. Moderate Sedation - Procedure Monitoring Vital Signs: Procedure Monitoring Vital Signs Temperature 98.1 F 11/14/18 21:34 Pulse Rate 91 H 11/14/18 21:34 Respiratory Rate 20 11/14/18 21:34 Blood Pressure 150/110 H 11/14/18 21:34 O2 Sat by Pulse Oximetry (%) 100 11/14/18 21:34 Medical Decision Making - Medical Decision Making 11/14/18 22:12 X-ray show no evidence of fracture trauma or destructive process. *DC/Admit/Observation/Transfer Diagnosis at time of Disposition: Ankle sprain, Right foot strain Right ankle injury Qualifiers: Encounter type: initial encounter Qualified Code(s): S99.911A - Unspecified injury of right ankle, initial encounter - Discharge Dispostion Disposition: HOME Condition at time of disposition: Stable Decision to Admit order: No - Referrals Referrals: Shari Juárez [Primary Care Provider] - Danilo Mireles DO [Staff Physician] - - Patient Instructions Printed Discharge Instructions: Ankle Sprain, DI for Ankle Sprain Additional Instructions: Tylenol as directed for pain. He may weight-bear as tolerated with use of crutches and the Aircast. Please follow-up with orthopedic surgery in 1-2 days for further evaluation and treatment options and return to the emergency room should symptoms worsen. - Post Discharge Activity
== END 2018-11-14 22:33 | disposition home or self-care (01) ==
LOC: JERFT 21:30
PROC: 2W3QX1Z Immobilization of Right Lower Leg using Splint (ICD-10-PCS; principal; 2018-11-14)
DX: S99.911A Unspecified injury of right ankle, initial encounter (principal); X58.XXXA Exposure to other specified factors, initial encounter; Y93.89 Activity, other specified; Y92.89 Other specified places as the place of occurrence of the external cause; I10 Essential (primary) hypertension; M25.571 Pain in right ankle and joints of right foot
CPT/HCPCS: 29515; 73610-TC-RT-FY; 73630-TC-RT-FY; 99281-25

== ENCOUNTER 2019-09-01 01:21 | Emergency (ER) | payer OTHER ==
[2019-09-01 01:33] VITALS: BP 119/63; PULSE 90; TEMP 98.3; BMI 27.4
[2019-09-01] MEDS ORDERED: IBUPROFEN 600 MG TABLET (FP) PO ONE ×2 (03:10→03:19)
--- NOTE | 2019-09-01 04:04 | PDOC ---
History of Present Illness - General Chief Complaint: Pain, Acute Stated Complaint: FINGER PAIN Time Seen by Provider: 09/01/19 03:02 History Source: Patient Exam Limitations: No Limitations - History of Present Illness Initial Comments: 09/01/19 03:52 Mr. Michell Montoya is a [id number] 39-year-old male who presents emergency department with a complaint of pain to his ring finger. Briefly, patient sustained an injury earlier this year for which he had an operative procedure by a hand surgeon from [facility]. Patient states subsequent to that surgery he has had flexion of the PIP. 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 He had to drop the box. No direct trauma to the finger No puncture wounds No skin changes, no fevers or chills PMH: denies PSH: left ring finger surgery Meds: NKDA ALL: NKDA Social: ROS: GENERAL/CONSTITUTIONAL: No: fever, chills, weakness, loss of appetite. HEAD, EYES, EARS, NOSE AND THROAT: No: change in vision, ear pain, discharge, sore throat, throat swelling. CARDIOVASCULAR: No: chest pain, lightheadedness, palpitations, syncope RESPIRATORY: No: cough, shortness of breath, wheezing, hemoptysis, stridor. GASTROINTESTINAL: No: nausea, vomiting, diarrhea, abdominal cramping, rectal bleeding, constipation. GENITOURINARY: No: dysuria, hematuria, frequency, urgency, flank pain. MUSCULOSKELETAL: Yes: ring finger tender to palpaion No: swelling SKIN: No: rash, laceration NEUROLOGIC: No: headache, vertigo, paresthesias, weakness PE: GENERAL: The patient is in no acute distress. HEAD: Normal with no signs of trauma. EYES: PERRLA, EOMI, sclera anicteric, conjunctiva clear. ENT: Ears normal, nares patent, oropharynx clear without exudates. Moist mucous membranes. NECK: Normal range of motion, supple without lymphadenopathy, JVD, or masses. LUNGS: Breath sounds equal, clear to auscultation bilaterally. No wheezes, and no crackles. HEART:Regular rate and rhythm, normal S1 and S2 without murmur, rub or gallop. ABDOMEN: Soft, nontender, normoactive bowel sounds. No guarding, no rebound. No masses palpable. EXTREMITIES: left ring finger flexed at PIP, limited extension (stable from prior) tender throughout the finger sensation in tact No cyanosis. NEUROLOGICAL: Cranial nerves II through XII grossly intact. Normal speech. No focal neurological deficits. MUSCULOSKELETAL: Back non-tender to palpation SKIN: No laceration, rash bruising Past History - Past Medical History Allergies/Adverse Reactions: Allergies Allergy/AdvReac Type Severity Reaction Status Date / Time No Known Allergies Allergy Verified 09/01/19 01:30 Home Medications: Ambulatory Orders traMADol HCL [Ultram] 50 mg PO BID PRN #6 tablet MDD 2 09/01/19 CVA: No COPD: No DVT: No HTN: Yes - Immunization History Immunization Up to Date: Yes - Psycho Social/Smoking Cessation Hx Smoking History: Never smoked Have you smoked in the past 12 months: No Information on smoking cessation initiated: No Hx Alcohol Use: No Drug/Substance Use Hx: No Substance Use Type: None *Physical Exam - Vital Signs Last Vital Signs Temp Pulse Resp BP Pulse Ox 98.3 F 90 20 119/63 95 09/01/19 01:26 09/01/19 01:26 09/01/19 01:26 09/01/19 01:26 09/01/19 01:26 ED Treatment Course - RADIOLOGY Radiology Studies Ordered: Category Date Time Status FINGER(S) LEFT [RAD] Stat Radiology 09/01/19 03:10 Ordered - Medications Given in the ED: ED Medications Discontinued Medications Generic Name Dose Route Start Last Admin Trade Name Freq PRN Reason Stop Dose Admin Ibuprofen 600 mg 09/01/19 03:10 09/01/19 03:30 Motrin - PO 09/01/19 03:11 600 mg ONCE ONE Administration Medical Decision Making - Medical Decision Making 09/01/19 04:04 39-year-old [id number] male presenting to the emergency department with a complaint of left ring finger pain He status post operative procedure Xray performed No obvious fractures on my review of xray 09/01/19 04:35 X ray: Referring Physician: PAUL SPENCE Patient Name: CATRACHITO HORNE THIS IS A PRELIMINARY REPORT FROM [facility] DATE OF SERVICE: 2019-09-01 03:13:13 IMAGES: 2 EXAM: FINGER(S) LEFT HISTORY: Pain. Prior surgery. COMPARISON: None. FINDINGS: There is a fracture of the distal aspect of the middle phalange of the fourth finger. No other fractures identified. IMPRESSION: Fracture of the distal aspect of the middle phalange of the fourth finger. 09/01/19 04:44 Finger splint applied Pt will be discharged to home (I am not sure and patient is not sure if he had a fracture before) Finger splint applied Will ask pt to follow up with his hand surgeon FLAVIO Discharge - Discharge Information Problems reviewed: Yes Clinical Impression/Diagnosis: Finger injury Qualifiers: Encounter type: initial encounter Laterality: left Qualified Code(s): S69.92XA - Unspecified injury of left wrist, hand and finger(s), initial encounter Finger fracture, left Qualifiers: Encounter type: initial encounter Finger: ring finger Fracture type: closed Phalanx: unspecified phalanx Fracture alignment: nondisplaced Qualified Code(s) : S62.605A - Fracture of unspecified phalanx of left ring finger, initial encounter for closed fracture Condition: Stable Disposition: HOME - Admission No - Additional Discharge Information Prescriptions: traMADol HCL [Ultram] 50 mg PO BID PRN #6 tablet MDD 2 PRN Reason: Severe Pain - Follow up/Referral Referrals: Shari Juárez [Primary Care Provider] - - Patient Discharge Instructions Patient Printed Discharge Instructions: DI for Finger Fracture, DI for Finger Sprain Additional Instructions: Mr. Michell Montoya Thank you for coming in to the ER today Please be sure to follow up with your Hand Surgeon Please take Motrin for pain or Tylenol #3 Please wear finger splint as is tolerable for you Return to the ER for any other concerns or complaint - Post Discharge Activity
== END 2019-09-01 05:08 | disposition home or self-care (01) ==
LOC: JER 01:21
DX: S62.605A Fracture of unspecified phalanx of left ring finger, initial encounter for closed fracture (principal); X58.XXXA Exposure to other specified factors, initial encounter; Y93.89 Activity, other specified; Y92.89 Other specified places as the place of occurrence of the external cause; I10 Essential (primary) hypertension
CPT/HCPCS: 73140-TC-LT-FY; 99281-25

== ENCOUNTER 2020-08-23 23:27 | Emergency (ER) | payer OTHER ==
[2020-08-23 23:33] VITALS: BP 147/112; PULSE 99; TEMP 99.8; BMI 23.3
== END 2020-08-24 00:40 | disposition home or self-care (01) ==
LOC: JER 23:27
DX: Z03.818 Encounter for observation for suspected exposure to other biological agents ruled out (principal)
CPT/HCPCS: 99282-25

== ENCOUNTER 2020-09-06 23:00 | Emergency (ER) | payer OTHER ==
[2020-09-06 23:17] VITALS: BP 130/95; PULSE 81; TEMP 97.8; BMI 27.4
[2020-09-07] MEDS ORDERED: ACETAMINOPHEN 325 MG TABLET (FP) PO ONE (00:39)
[2020-09-07 01:07] LABS: BASO % 0.6 % (0-2.0); EOS % 0.8 % (0-4.5); HEMATOCRIT 41.6 % (35.4-49); HEMOGLOBIN 14.2 GM/dL (11.7-16.9); LYMPH % 23.9 % (8-40); MCH 31.6 pg (25.7-33.7); MEAN CELL VOLUME 92.8 fl (80-96); MEAN PLT VOLUME 7.8 fl (7.5-11.1); MONO % 8.8 % (3.8-10.2); NEUT % 65.9 % (42.8-82.8); PLATELET COUNT 328 K/MM3 (134-434); RBC 4.48 M/mm3 (4.00-5.60); RDW 13.2 % (11.9-15.9); WHITE BLOOD COUNT 7.4 K/mm3 (4.0-10.0)
[2020-09-07] MEDS ORDERED: ACETAMINOPHEN 325 MG TABLET (FP) ONE (01:08)
[2020-09-07 01:26] LABS: INR 1.06 (0.83-1.09); PROTHROMBIN TIME (PATIENT) 12.8 SEC (9.7-13.0)
[2020-09-07 01:28] LABS: ACTIVATED PTT 29.4 SECONDS (25.2-36.5)
[2020-09-07 01:32] LABS: CHLORIDE 106 mmol/L (98-107); POTASSIUM 3.8 mmol/L (3.5-5.1); SODIUM 138 mmol/L (136-145)
[2020-09-07 01:34] LABS: CALCIUM 8.8 mg/dL (8.5-10.1)
[2020-09-07 01:35] LABS: ALBUMIN 3.9 g/dl (3.4-5.0); ANION GAP 5 MMOL/L (8-16); BLOOD UREA NITROGEN 18.5 mg/dL (7-18); CO2 27 mmol/L (21-32); GLUCOSE,RANDOM 97 mg/dL (74-106)
[2020-09-07 01:38] LABS: CREATININE 1.7 mg/dL (0.55-1.3); SGOT/AST 31 U/L (15-37); SGPT/ALT 53 U/L (13-61)
[2020-09-07 01:40] LABS: BILIRUBIN,TOTAL 0.6 mg/dL (0.2-1); TOT PROT 7.8 g/dl (6.4-8.2)
[2020-09-07 01:41] LABS: ALK PHOS 67 U/L (45-117)
[2020-09-07 01:42] LABS: LDH 182 U/L (87-246)
[2020-09-07 01:46] LABS: BILIRUBIN,DIRECT 0.1 mg/dL (0.0-0.2)
[2020-09-07 02:19] LABS: EPI CELLS 11 /uL (0-25.1); HYALINE CASTS 4 /uL (0-3.1); URINE APPEARANCE CLEAR; URINE BACTERIA 15 /uL (0-1359); URINE BILIRUBIN NEGATIVE (NEGATIVE); URINE COLOR YELLOW; URINE GLUCOSE (UA) NEGATIVE (NEGATIVE); URINE KETONE TRACE (NEGATIVE); URINE LEUK ESTERASE NEGATIVE (NEGATIVE); URINE NITRITE NEGATIVE (NEGATIVE); URINE PROTEIN 2+ (NEGATIVE); URINE RBC 2 /uL (0-23.9); URINE UROBILINOGEN 0.2 mg/dL (0.2-1.0); URINE WBC 5 /uL (0-25.8)
== END 2020-09-07 02:41 | disposition home or self-care (01) ==
LOC: JER 23:00
DX: R07.9 Chest pain, unspecified (principal)
CPT/HCPCS: 36415; 71045-TC-FY; 80053; 81003; 82248; 82550; 82553; 82728; 83605; 83615; 84484; 85025; 85610; 85730; 86140; 93005; 93010; 99285-25; C9803; U0003

== ENCOUNTER 2020-11-11 17:31 | Emergency (ER) | payer OTHER ==
[2020-11-11 17:36] VITALS: BP 126/89; PULSE 75; TEMP 98.4; BMI 27.4
[2020-11-11] MEDS ORDERED: AZITHROMYCIN 500 MG TABLET PO ONE (17:58)
[2020-11-11] MEDS ORDERED: AZITHROMYCIN 250 MG TABLET ONE (18:03)
[2020-11-11 19:16] LABS: PH,URINE 8.5 (5.0-8.0); URINE APPEARANCE TURBID; URINE BILIRUBIN NEGATIVE (NEGATIVE); URINE COLOR YELLOW; URINE GLUCOSE (UA) NEGATIVE (NEGATIVE); URINE KETONE NEGATIVE (NEGATIVE); URINE LEUK ESTERASE NEGATIVE (NEGATIVE); URINE NITRITE NEGATIVE (NEGATIVE); URINE PROTEIN NEGATIVE (NEGATIVE)
== END 2020-11-11 18:23 | disposition home or self-care (01) ==
LOC: JERFT 17:31
DX: R30.0 Dysuria (principal)
CPT/HCPCS: 36415; 81003; 87086; 87491; 87591; 99284-25

== ENCOUNTER 2022-02-14 17:00 | Emergency (ER) | payer OTHER ==
[2022-02-14 17:07] VITALS: BP 147/89; PULSE 89; TEMP 98.9; BMI 29.9
[2022-02-14] MEDS ORDERED: KETOROLAC TROMETHAMINE 30 MG/1 ML VIAL IM ONE (18:02)
[2022-02-14] MEDS ORDERED: KETOROLAC TROMETHAMINE 30 MG/1 ML VIAL ONE (18:07)
== END 2022-02-14 18:43 | disposition home or self-care (01) ==
LOC: JER 17:00
PROC: 3E023GC Introduction of Other Therapeutic Substance into Muscle, Percutaneous Approach (ICD-10-PCS; principal; 2022-02-14)
DX: R07.0 Pain in throat (principal)
CPT/HCPCS: 0241U-QW; 87070; 99284-25

== ENCOUNTER 2022-02-16 04:08 | Emergency (ER) | payer OTHER ==
[2022-02-16] MEDS ORDERED: DEXAMETHASONE SOD PHOSPHATE 10 MG/1 ML VIAL IM ONE (04:45)
[2022-02-16] MEDS ORDERED: ACETAMINOPHEN 500 MG TABLET (FP) PO ONE (04:46)
[2022-02-16] MEDS ORDERED: ACETAMINOPHEN 1000 MG/100 ML BAG IVPB ONE (04:49)
[2022-02-16] MEDS ORDERED: SODIUM CHLORIDE 0.9% 500 ML INFUS.BAG IV ONE (04:49)
[2022-02-16] MEDS ORDERED: DEXAMETHASONE SOD PHOSPHATE 10 MG/1 ML VIAL ONE (05:18)
[2022-02-16] MEDS ORDERED: ACETAMINOPHEN INJECTION 100 ML IVPB ONE (05:18)
[2022-02-16 05:30] VITALS: BP 123/80; PULSE 78; TEMP 98.7; BMI 29.0
[2022-02-16 06:02] LABS: PH,URINE 5.5 (5.0-8.0); URINE APPEARANCE CLEAR; URINE BILIRUBIN NEGATIVE (NEGATIVE); URINE COLOR YELLOW; URINE GLUCOSE (UA) NEGATIVE (NEGATIVE); URINE KETONE NEGATIVE (NEGATIVE); URINE LEUK ESTERASE NEGATIVE (NEGATIVE); URINE NITRITE NEGATIVE (NEGATIVE); URINE PROTEIN NEGATIVE (NEGATIVE); URINE UROBILINOGEN 0.2 mg/dL (0.2-1.0)
== END 2022-02-16 06:40 | disposition home or self-care (01) ==
LOC: JER 04:08
PROC: 3E023GC Introduction of Other Therapeutic Substance into Muscle, Percutaneous Approach (ICD-10-PCS; principal; 2022-02-16)
PROC: 3E033GC Introduction of Other Therapeutic Substance into Peripheral Vein, Percutaneous Approach (ICD-10-PCS; principal; 2022-02-16)
DX: B34.9 Viral infection, unspecified (principal)
CPT/HCPCS: 81003; 87086; 99284-25; J1100

== ENCOUNTER 2022-09-08 18:38 | Emergency (ER) | payer OTHER ==
[2022-09-08 18:50] VITALS: BP 149/93; PULSE 92; RESP 18; TEMP 98.2; BMI 27.4
[2022-09-08] MEDS ORDERED: guaiFENesin/D-M SUGAR-FREE/ACLHOL-FREE 118 ML BOTTLE PO ONE (21:25)
[2022-09-08] MEDS ORDERED: ALBUTEROL SO4 2.5/IPRATROPIUM 0.5 INH SOL 3 ML VIAL.NEB. NEB SCH (21:30)
[2022-09-08] MEDS ORDERED: ALBUTEROL SO4 2.5/IPRATROPIUM 0.5 INH SOL 3 ML VIAL.NEB. NEB ONE (21:40)
[2022-09-08] MEDS ORDERED: guaiFENesin/D-METHORPHAN HB 10 ML UNIT-DOSE CUPS ONE (21:40)
[2022-09-08] MEDS ORDERED: predniSONE 20 MG TABLET (UD) PO ONE (23:30)
[2022-09-08] MEDS ORDERED: predniSONE 20 MG TABLET (UD) ONE (23:38)
== END 2022-09-08 23:40 | disposition home or self-care (01) ==
LOC: JER 18:38 → JERFT 18:38
PROC: 3E0F7GC Introduction of Other Therapeutic Substance into Respiratory Tract, Via Natural or Artificial Opening (ICD-10-PCS; principal; 2022-09-08)
DX: J45.901 Unspecified asthma with (acute) exacerbation (principal)
CPT/HCPCS: 0241U-QW; 71046-TC-FY; 99284-25

== ENCOUNTER 2025-05-17 18:49 | Emergency (ER) | payer OTHER ==
[2025-05-17 18:56] VITALS: RESP 18; TEMP 98.1; BMI 27.4
[2025-05-17] MEDS ORDERED: ONDANSETRON 4 MG/2 ML VIAL ONE (20:15)
[2025-05-17] MEDS: ONDANSETRON *ODT* 4 MG TABLET SL ONE ×2 (20:22→21:05)
[2025-05-17] MEDS: LACTATED RINGERS SOLUTION 1000 ML INFUS.BAG IV ONE (20:22)
[2025-05-17] MEDS: ONDANSETRON 4 MG/2 ML VIAL IVPUSH ONE (20:22)
[2025-05-17 20:26] LABS: ABSOLUTE IMMATURE GRANULOCYTES 0.04 x10^3/uL (0.0-0.031); BASOPHILS # 0.03 x10^3/uL (0.01-0.08); EOSINOPHIL % 0.1 % (0.8-7.0); EOSINOPHILS # 0.01 x10^3/uL (0.04-0.54); MCHC 33.3 g/dl (32.3-36.5); MEAN CELL VOLUME 93.4 fl (79.0-92.2); MEAN PLT VOLUME 9.2 fl (9.4-12.4); MONOCYTE # 0.82 x10^3/uL (0.30-0.82); MONOCYTE % 7.1 % (5.3-12.2); RDW 12.5 % (12.1-15.9)
[2025-05-17] MEDS ORDERED: FAMOTIDINE 20 MG/50 ML IVPB 20 MG/50 ML MG IVPB ONE (20:28)
[2025-05-17 20:52] LABS: GLUCOSE,RANDOM 93.0 mg/dL (74-106); TOT PROT 8.7 g/dl (6.4-8.2)
[2025-05-17 20:53] LABS: CO2 23.0 mmol/L (21-32)
[2025-05-17 20:55] LABS: ALK PHOS 65.0 U/L (40-150)
[2025-05-17 20:58] LABS: CREATININE 1.24 mg/dL (0.55-1.3); SGOT/AST 48.0 U/L (5-34); SGPT/ALT 28.0 U/L (0-55)
[2025-05-17] MEDS ORDERED: ONDANSETRON *ODT* 4 MG TABLET ONE (21:01)
[2025-05-17] MEDS ORDERED: FAMOTIDINE 10 MG TABLET ONE (21:01)
[2025-05-17] MEDS: FAMOTIDINE 20 MG/50 ML IVPB 20 MG/50 ML MG IVPB ONE (21:04)
[2025-05-17] MEDS: FAMOTIDINE 10 MG TABLET PO ONE (21:05)
[2025-05-17 21:20] LABS: HIV INTERPRETATION NEGATIVE (NEGATIVE)
[2025-05-17 21:22] LABS: HCV DIAGNOSTIC IN-HOUSE W/RFLX NON-REACTIVE (NONREACTIVE)
[2025-05-17 22:27] VITALS: BP 130/93; PULSE 75
== END 2025-05-17 22:27 | disposition home or self-care (01) ==
LOC: JER 18:49
PROC: 3E033GC Introduction of Other Therapeutic Substance into Peripheral Vein, Percutaneous Approach (ICD-10-PCS; principal; 2025-05-17)
DX: R11.2 Nausea with vomiting, unspecified (principal); R42 Dizziness and giddiness; R53.1 Weakness; R53.81 Other malaise; H53.8 Other visual disturbances; R19.7 Diarrhea, unspecified
CPT/HCPCS: 36415; 80053; 83690; 83735; 85025; 86803; 87389; 93005; 93010; 99284-25; Q0162